=== PATIENT | male | born 1970 | race Caucasian/White ===

== ENCOUNTER 2018-01-20 11:34 | Emergency (ER) | payer MEDICAID, OTHER ==
[~2018-01-20] VITALS: Ht 180.3 cm; Wt 73.5 kg
[~2018-01-20 11:34] MED LIST: DIVA500T52 PO; QUET200T PO; SERT50TA12 PO
[2018-01-20 11:36] VITALS: BP 128/78
== END 2018-01-20 13:38 | disposition home or self-care (01) ==
LOC: EMS 11:34
DX: Z76.0 Encounter for issue of repeat prescription (principal)
CPT/HCPCS: 99281

== ENCOUNTER 2018-01-27 16:05 | Emergency (ER) | payer OTHER ==
[~2018-01-27] VITALS: Ht 180.3 cm; Wt 73.5 kg
[2018-01-27] MEDS ORDERED: TRAZ-147 PO (16:51)
[2018-01-27 18:12] VITALS: BP 133/95
[2018-01-27] MEDS ORDERED: TraZODone HCL 50 MG TABLET PO ONE (18:30)
== END 2018-01-27 18:50 | disposition home or self-care (01) ==
LOC: EMS 16:11
DX: Z76.0 Encounter for issue of repeat prescription (principal); F31.9 Bipolar disorder, unspecified; F29 Unspecified psychosis not due to a substance or known physiological condition; Z79.899 Other long term (current) drug therapy
CPT/HCPCS: 99283

== ENCOUNTER 2019-06-20 17:18 | Inpatient (IN) | payer MEDICAID ==
[~2019-06-20] VITALS: Ht 180.3 cm; Wt 77.9 kg
[~2019-06-20 17:18] MED LIST changes: +TRAZ-220 PO
[2019-06-20] MEDS ORDERED: FLUO-191 PO (18:23)
[2019-06-20] MEDS ORDERED: GABA-531 PO (18:23)
[2019-06-20 18:30] VITALS: BP 160/84
[2019-06-20] MEDS ORDERED: HALOPERIDOL 5 MG TABLET PO PRN (18:30)
[2019-06-20] MEDS ORDERED: ZOLPIDEM TARTRATE 10 MG TABLET PO PRN (18:30)
[2019-06-20] MEDS ORDERED: LORazepam 2 MG TABLET PO PRN ×2 (18:30→19:45)
[2019-06-20 19:50] VITALS: BP 118/78
[2019-06-20] MEDS: AmLODIPine BESYLATE 5 MG TABLET PO SCH (20:19)
[2019-06-20 20:35] VITALS: BP 124/60
[2019-06-20 21:30] VITALS: BP 122/64
[2019-06-20 22:42] VITALS: BP 108/64
[2019-06-21] VITALS (7 sets, daily range): BP systolic 115–135; BP diastolic 77–90
[2019-06-21] MEDS ORDERED: LOPERAMIDE HCL 2 MG CAPSULE PO PRN (05:00)
[2019-06-21] MEDS ORDERED: IBUPROFEN 600 MG TABLET PO PRN (05:00)
[2019-06-21] MEDS ORDERED: DOCUSATE SODIUM 100 MG CAPSULE PO PRN (05:00)
[2019-06-21] MEDS ORDERED: ONDANSETRON HCL 4 MG TABLET PO PRN (05:00)
[2019-06-21] MEDS ORDERED: ACETAMINOPHEN 325 MG TABLET PO PRN (05:00)
[2019-06-21] MEDS ORDERED: BENZOCAINE/MENTHOL LOZENGE MM PRN (05:00)
[2019-06-21] MEDS ORDERED: CloNIDine HCL 0.1 MG TABLET PO PRN (05:00)
[2019-06-21] MEDS ORDERED: MAG HYDROX/AL HYDROX/SIMETH ES 30 ML SUSPENSION UDCUP PO PRN (05:00)
[2019-06-21] MEDS ORDERED: MAGNESIUM HYDROXIDE SUSPENSION 30 ML UDCUP PO PRN (05:00)
[2019-06-21] MEDS ORDERED: ALBUTEROL SULFATE HFA 90 MCG/PUFF 8 GM INHALER IH PRN (05:00)
[2019-06-21] MEDS ORDERED: OMEPRAZOLE 20 MG CAPSULE PO PRN (05:00)
[2019-06-21] MEDS ORDERED: BACITRACIN 28.4 GM OINTMENT TP PRN (05:00)
[2019-06-21] MEDS ORDERED: PETROLATUM,WHITE 28 GM JELLY TP PRN (05:00)
[2019-06-21] MEDS ORDERED: LORazepam 2 MG TABLET PO PRN (07:00)
[2019-06-21 07:40] LABS: BASOPHILS % (AUTO) 1.9 % (0.0-2.0); EOSINOPHILS % (AUTO) 3.9 % (1.0-6.0); HEMOGLOBIN 14.1 g/dL (13.5-17.5); LYMPHOCYTES % (AUTO) 21.9 % (22.0-44.0); MEAN CORPUSCULAR HEMOGLOBIN 29.5 pg (26.0-34.0); MEAN CORPUSCULAR HGB CONC 32.7 G/dL (31.0-37.0); MEAN CORPUSCULAR VOLUME 90 fL (80-100); MONOCYTES # (AUTO) 0.4 K/uL (0.1-1.0); MONOCYTES % (AUTO) 9.5 % (2.0-9.0); NEUTROPHILS # (AUTO) 2.7 K/uL (1.8-7.7); NEUTROPHILS % (AUTO) 62.8 % (40.0-70.0); PLATELET COUNT (AUTO) 356 K/uL (150-450); RED BLOOD CELL COUNT(AUTO) 4.77 MIL/uL (4.50-5.90); RED CELL DISTRIBUTION WIDTH 16.8 % (11.5-14.5)
[2019-06-21 07:50] LABS: HEMOGLOBIN A1C 5.7 % (4.5-6.2)
[2019-06-21 08:07] LABS: ALANINE AMINOTRANSFERASE 31 U/L (12-78); ALBUMIN 3.5 g/dL (3.4-5.0); ALKALINE PHOSPHATASE 86 U/L (46-116); ANION GAP 12 mmol/L (8-16); ASPARTATE AMINOTRANSFERASE 32 U/L (15-37); BILIRUBIN,TOTAL 0.5 mg/dL (0.1-1.0); CALCIUM, TOTAL 8.8 mg/dL (8.8-10.5); CARBON DIOXIDE 24 mmol/L (22-29); CHLORIDE 104 mmol/L (98-107); CHOL/HDL RATIO 3.2 (4.2-7.3); CHOLESTEROL 195 mg/dL (131-200); CREATININE 0.83 mg/dL (0.60-1.30); FREE T4 (FREE THYROXINE) 0.78 ng/dL (0.76-1.46); GLOMERULAR FILTR. RATE CALC > 60 mL/min (>60); GLUCOSE,RANDOM 101 mg/dL (70-110); HDL CHOLESTEROL 61 mg/dL (40-60); LDL CHOL (CALC.) 101 mg/dL (0-130); POTASSIUM 4.2 mmol/L (3.5-5.1); SODIUM SERUM 140 mmol/L (136-145); THYROID STIMULATING HORMONE 1.38 uIU/mL (0.36-3.74); TOTAL PROTEIN, SERUM 6.9 g/dL (6.4-8.2); TRIGLYCERIDES 166 mg/dL (15-150); UREA NITROGEN, BLOOD 8 mg/dL (7-18)
[2019-06-21] MEDS: LORazepam 2 MG TABLET PO SCH ×4 (08:58→20:45)
[2019-06-21] MEDS: GABAPENTIN 300 MG CAPSULE PO SCH ×3 (08:58→17:01)
[2019-06-21] MEDS: AmLODIPine BESYLATE 5 MG TABLET PO SCH (08:58)
[2019-06-21] MEDS: FLUoxetine HCL 20 MG CAPSULE PO SCH (10:25)
[2019-06-21] MEDS: QUEtiapine FUMARATE 200 MG TABLET PO SCH (20:45)
[2019-06-22 07:05] VITALS: BP 127/78
[2019-06-22] MEDS: AmLODIPine BESYLATE 5 MG TABLET PO SCH (09:35)
[2019-06-22] MEDS: FLUoxetine HCL 20 MG CAPSULE PO SCH (09:35)
[2019-06-22] MEDS: GABAPENTIN 300 MG CAPSULE PO SCH ×3 (09:35→16:38)
[2019-06-22] MEDS: LORazepam 2 MG TABLET PO SCH ×4 (09:35→20:22)
[2019-06-22 16:00] VITALS: BP 139/87
[2019-06-22] MEDS: QUEtiapine FUMARATE 200 MG TABLET PO SCH (20:22)
[2019-06-23 06:31] VITALS: BP 122/78
[2019-06-23] MEDS ORDERED: LORazepam 1 MG TABLET PO PRN (07:00)
[2019-06-23] MEDS: AmLODIPine BESYLATE 5 MG TABLET PO SCH (08:14)
[2019-06-23] MEDS: GABAPENTIN 300 MG CAPSULE PO SCH ×2 (08:14→12:29)
[2019-06-23] MEDS: FLUoxetine HCL 20 MG CAPSULE PO SCH (08:14)
[2019-06-23] MEDS: LORazepam 1 MG TABLET PO SCH ×2 (08:15→12:31)
[2019-06-23 08:30] VITALS: BP 135/98
[2019-06-23] MEDS ORDERED: QUET200T PO (09:28)
[2019-06-24] MEDS ORDERED: LORazepam 1 MG TABLET PO PRN (07:00)
== END 2019-06-23 14:44 | disposition home or self-care (01) | DRG 750 ==
LOC: B3A 18:21
PROVIDERS: ADMIT Psychiatry & Neurology Psychiatry; ATTEND Psychiatry & Neurology Psychiatry
DX: F25.9 Schizoaffective disorder, unspecified (principal); R45.851 Suicidal ideations; Z59.0 Homelessness; F41.9 Anxiety disorder, unspecified; G47.00 Insomnia, unspecified; K59.00 Constipation, unspecified; F10.10 Alcohol abuse, uncomplicated; Z91.5 Personal history of self-harm; Z79.899 Other long term (current) drug therapy
CPT/HCPCS: 83036; 84439; 84443; 87081